=== PATIENT | female | born 1980 | race Caucasian/White ===

== ENCOUNTER 2016-12-10 08:24 | Observation (INO) | payer BC ==
[2016-12-05 12:35] LABS: BASOPHILS 0.6 %; BASOPHILS ABSOLUTE 0.03 10/3/uL (0.0-0.16); EOSINOPHILS 1.1 %; EOSINOPHILS ABSOLUTE 0.06 10/3/uL (0.0-0.53); HEMATOCRIT 39.5 % (36.0-48.0); IMMATURE GRANULOCYTES 0.2 %; IMMATURE GRANULOCYTES ABSOLUTE 0.01 10/3/uL (0.0-0.11); LYMPHOCYTES 49.4 %; LYMPHOCYTES ABSOLUTE 2.65 10/3/uL (0.67-4.30); MEAN CORPUS HGB CONC 32.9 g/dL (32.0-36.0); MEAN CORPUSCULAR HEMOGLOB 30.2 pg (26.0-34.0); MEAN CORPUSCULAR VOLUME 91.6 fL (80-100); MEAN PLATELET VOLUME 10.2 fL (9.2-13.0); MONOCYTES 6.7 %; MONOCYTES ABSOLUTE 0.36 10/3/uL (0.21-1.20); NEUTROPHILS ABSOLUTE 2.25 10/3/uL (2.02-8.40); PLATELET COUNT 370 10/3/uL (150-400); RBC DISTRIBUTION WIDTH 14.1 % (12.0-16.0); RED CELL COUNT 4.31 10/6/uL (4.0-5.6); WHITE BLOOD CELLS 5.4 10/3/uL (4.5-10.5)
[2016-12-05 12:37] LABS: MANUAL DIFF NO %
[2016-12-05 12:42] LABS: INTERNATIONAL NORMAL RATI 1.1 UNITS (-); PARTIAL THROMBO TIME 29.8 SEC (22.5-37.2); PROTIME (NOT ORD) 13.9 SEC (12.0-14.5)
[2016-12-05 12:58] LABS: A/G RATIO 1.7 (0.7-1.9); ALBUMIN 4.3 G/DL (3.5-5.0); ALKALINE PHOSPHATASE 52 U/L (45-117); BUN (BLOOD UREA NITROGEN) 16 MG/DL (6-23); CALCIUM, SERUM 9.3 MG/DL (8.5-10.4); CHLORIDE, SERUM 106 MMOL/L (96-112); CO2 (CARBON DIOXIDE) 28 MMOL/L (24-34); CREATININE 0.74 MG/DL (0.55-1.02); GFR AFRICAN AMERICAN 123 ML/MIN (>=60); GFR NON AFRICAN AMERICAN 106 ML/MIN (>=60); GLOBULIN 2.6 G/DL (2.5-4.1); GLUCOSE, SERUM 84 MG/DL (60-99); POTASSIUM, SERUM 4.4 MMOL/L (3.5-5.3); SGOT(AST) 16 U/L (5-40); SGPT(ALT) 17 U/L (5-65); SODIUM, SERUM 141 MMOL/L (135-148); TOTAL BILIRUBIN 0.5 MG/DL (0-1.2); TOTAL PROTEIN 6.9 G/DL (6.0-8.5)
[2016-12-05 13:18] LABS: PFA (COL/EPI) 147 SEC (72-180)
--- NOTE | ~2016-12-10 | OP ---
Record Of Operation [facility] [address] [place]. [address] NAME: MARICRUZ GOLDBERG : 84 STATUS : DIS Aristides PAT#: [id number] AGE: 36 ADM/REG DATE : 12/10/16 MR#: [id number] REPORT SERV DATE: 12/11/16 DICTATED BY: CLAIRE LYNCH DATE: 12/11/16 REPORT STATUS : Draft TRANSCRIBED BY: IZABELA DATE: 12/11/16 DATE OF PROCEDURE: 12/10/2016 PREOPERATIVE DIAGNOSIS: Surgical absence of the breast, history of breast cancer. POSTOPERATIVE DIAGNOSIS: Surgical absence of the breast, history of breast cancer. PROCEDURE: Bilateral tissue expansion, acellular dermal matrix reconstruction of the nipple- areolar complex sparing mastectomies. INDICATIONS AND FINDINGS OF THE PROCEDURE: This 36-year-old female presents with an anticipated bilateral mastectomy, nipple-areolar complex sparing type. She is appropriate for the above-described operative intervention. DETAILS OF THE PROCEDURE: The patient presents on the operating table after bilateral mastectomies. First, our attention was turned to the right breast. Ropivacaine block was obtained. She was thoroughly irrigated with Hibiclens solution, checked for hemostasis and the pectoralis muscle was released and appropriately reconstituted. Sheet of acellular dermal matrix was then sewn to the cut edge of the pectoralis muscle. The purpose of the acellular dermal matrix was to supplement the soft tissue envelope, recreate the inframammary crease, and stabilize the position of the tissue real estate job titles. The acellular dermal matrix was then sewn to the proposed new inframammary crease, and a 600 mL tissue real estate job titles was placed behind the muscle AlloDerm construct. The tissue real estate job titles was secured to the chest, wrapped with the ADM, and then filled to 250. She was once again cleansed with peroxide. Inferior drains were placed and then she was closed in a progressive tension fashion with multiple layers of 3-0 PDS and Monocryl through to an intracuticular in the skin. Nipple-areolar complex perfusion was noted to be good. Contralaterally, an identical procedure was then carried out. The pectoralis muscle was released. She was irrigated, checked for hemostasis, blocked, and an identical sheet of acellular dermal matrix was used to an identical purpose. An identical tissue real estate job titles was placed behind the muscle AlloDerm construct, wrapped with the ADM, and fixed to the chest wall. It was filled to 250. She was re-irrigated and two 10-[place] drains were placed. She was then closed in a progressive tension fashion with multiple layers of 3-0 PDS and Monocryl through to an intracuticular in the skin. She was cleansed with peroxide. Nitroglycerin paste and dry dressings were placed and she was remanded to the recovery room in stable condition. All sponge and needle counts were correct. JANELLE/IZABELA Claire Lynch M.D. / [id number] Record Of Operation [address] [address] NAME: MARICRUZ GOLDBERG : 84 STATUS : DIS Aristides PAT#: [id number] AGE: 36 ADM/REG DATE : 12/10/16 MR#: [id number] REPORT SERV DATE: 12/11/16 DICTATED BY: CLAIRE LYNCH DATE: 12/11/16 REPORT STATUS : Draft TRANSCRIBED BY: IZABELA DATE: 12/11/16 CC: Ricky Ponce Jr., DO
--- NOTE | ~2016-12-10 | OP ---
Record Of Operation [facility] [address] [place]. [address] NAME: MARICRUZ GOLDBERG : 84 STATUS : ADM Aristides PAT#: [id number] AGE: 36 ADM/REG DATE : 12/10/16 MR#: [id number] REPORT SERV DATE: 12/10/16 DICTATED BY: CYNTHIA CARRINGTON JR. DATE: 12/10/16 REPORT STATUS : Draft TRANSCRIBED BY: MODL DATE: 12/10/16 DATE OF PROCEDURE: REASON FOR SURGERY: This 36-year-old patient, presents for surgery following evaluation of malignancy of the right breast. It is hormone favorable, but has an increased proliferative rate. It is HER2 negative. The actual dimensions are not known, but appear to be over a centimeter, and possibly as large as 3 cm surrounding. She has a lesion in the lower outer quadrant of the left breast that is quite small and not evident on mammogram, but on MRI and ultrasound appears to be a malignancy. She is known to be BRCA2 positive. She is now scheduled for bilateral mastectomies with immediate reconstruction. PREOPERATIVE DIAGNOSES: 1. Carcinoma, right breast, with probable carcinoma, left breast. 2. Genetically positive BRCA2. POSTOPERATIVE DIAGNOSES: 1. Carcinoma, right breast, with probable carcinoma, left breast. 2. Genetically positive BRCA2. SURGEON: Cynthia Carrington M.D., with reconstruction by Donnie Lynch M.D. SURGERY PERFORMED: Bilateral sentinel node localization, and bilateral mastectomy, with bilateral sentinel node removal; immediate reconstruction. DESCRIPTION OF PROCEDURE: The patient was initially injected in the nuclear medicine facility on both sides. She was taken operating room and under general anesthesia, she was prepped and draped in supine position in the usual sterile fashion. Both breast mounds were marked for skin sparing mastectomies. The right breast was approached and the inframammary incision was made. Dissection was carried out above and below the breast incorporating the fascia below. This was approached in a three-dimensional fashion and complete removal was obtained. As I approached the subareolar area, small disk of the central ductal tissue was removed for permanent section. The tumor was located quite laterally in the sulcus in the lower outer quadrant on the right, and while there was adequate fatty tissue behind it, the subcutaneous fatty tissue was somewhat thinned anteriorly. No breast tissue was remaining in either the anterior- posterior projection. I anticipate the anterior margin to be close, but grossly clear margin is indeed evident. Dissection was carried along the latissimus laterally into the low axilla. Once the left breast was left suspended by the axillary tail, with adequate retraction, the gamma probe was used and two nodes were isolated with counts of over 2000 each. Background count was less than 10, indicating appropriate resection of the sentinel nodes. They were grossly negative and quite small. Further dissection through the axillary Record Of Operation [address] [place]. [address] NAME: MARICRUZ GOLDBERG : 84 STATUS : ADM Aristides PAT#: [id number] AGE: 36 ADM/REG DATE : 12/10/16 MR#: [id number] REPORT SERV DATE: 12/10/16 DICTATED BY: CYNTHIA CARRINGTON JR. DATE: 12/10/16 REPORT STATUS : Draft TRANSCRIBED BY: MODL DATE: 12/10/16 tail allowed delivery of the specimen. It was removed and oriented for pathology. The wound was irrigated hemostasis obtained. Attention was then turned to the left breast. A similar nipple sparing inframammary incision was made and dissection was carried out in each direction to incorporate the entire breast mound. The central ductal system was marked at this time on the surface of the resected specimen with suture material. Once the breast was dissected from off the latissimus into the low axilla, the gamma probe was again utilized to isolate the sentinel node. It was quite high and somewhat under the pectoralis minor at the level 2 position. Eventually, two nodes were removed on the left side. The active node was over 5000 and then there was a non sentinel node removed also. The background count was 23, indicating appropriate resection of the sentinel nodes. They were certainly small and appeared benign. The wound was irrigated and further dissection through the axillary tail allowed removal of the specimen which was oriented for pathology. The wound was irrigated and hemostasis was obtained. The patient tolerated the procedure well without complications. ESTIMATED BLOOD LOSS: 150 mL. SPONGE COUNT: Correct. Further description of operation is as per Dr. Lynch. MR/MODL Cynthia Carrington Jr., M.D. / [id number] CC: Ricky Ponce Jr., M.D. James Bolton, M.D. Brooke R. Daniel, M.D.
[~2016-12-10 08:24] MED LIST: *DENIES
[2016-12-11] MEDS ORDERED: PERCOCET 7.5/321 TAB PO (08:43)
[2016-12-11] MEDS ORDERED: AT25 PO (08:43)
[2016-12-11] MEDS ORDERED: K500 PO (08:44)
== END 2016-12-11 11:17 | disposition home or self-care (01) ==
LOC: SDC 08:24 → SDC/OF 16:24 → 4EA 16:47
PROVIDERS: Surgery Surgery of the Hand; Surgery Surgical Oncology
PROC: 0HHV0NZ Insertion of Tissue Expander into Bilateral Breast, Open Approach (ICD-10-PCS; 2016-12-10)
PROC: 0HTV0ZZ Resection of Bilateral Breast, Open Approach (ICD-10-PCS; principal; 2016-12-10 11:45)
PROC: 07T50ZZ Resection of Right Axillary Lymphatic, Open Approach (ICD-10-PCS; 2016-12-10 11:45)
DX: C50.911 Malignant neoplasm of unspecified site of right female breast (principal); Z90.89 Acquired absence of other organs; Z17.0 Estrogen receptor positive status [ER+]; Z88.1 Allergy status to other antibiotic agents
CPT/HCPCS: 71020; 78195; 80053; 82962; 84703; 85025; 85576; 85610; 85730; 88305; 88307; 88313; 88341; 88342; 88360; 88367; 96374; 96375; 96376; A9270-GY; A9541; C1769; C1789; G0378; J0690; J1170; J2250; J2270; J2405; J2550; J2710; J2795; J3010; Q4116